=== PATIENT | male | born 1970 | race Caucasian/White ===

== ENCOUNTER 2016-02-19 14:09 | Outpatient (CLI) | payer OTHER | END 2016-02-19 14:10 | disposition home or self-care (01) | DX: G47.33 Obstructive sleep apnea (adult) (pediatric) (principal) ==

== ENCOUNTER 2016-04-09 13:15 | Outpatient (CLI) | payer OTHER | END 2016-04-09 13:16 | disposition home or self-care (01) | DX: G47.33 Obstructive sleep apnea (adult) (pediatric) (principal) ==

== ENCOUNTER 2016-05-09 13:41 | Outpatient (CLI) | payer OTHER | END 2016-05-09 13:42 | disposition home or self-care (01) | DX: G47.33 Obstructive sleep apnea (adult) (pediatric) (principal) ==

== ENCOUNTER 2017-11-13 11:53 | Outpatient (CLI) | payer OTHER ==
--- NOTE | 2017-11-13 21:34 | XRAY Report ---
Reason: THUMB PAIN, RIGHT Procedure Date: 11/13/2017 Accession Number: [id number] / [id number] Procedure: XR - Hand 2 View RT CPT Code: FULL RESULT: EXAM: RIGHT HAND RADIOGRAPHY EXAM DATE: 11/13/2017 12:12 PM. CLINICAL HISTORY: THUMB PAIN, RIGHT. COMPARISON: None. TECHNIQUE: 2 views. FINDINGS: Bones: No acute fractures or suspicious bone lesions. Joints: No subluxations. Soft Tissues: Unremarkable. IMPRESSION: No acute radiographic abnormalities. RADIA
== END 2017-11-13 11:54 | disposition home or self-care (01) ==
LOC: DI 11:53
PROVIDERS: ATTEND Family Medicine
DX: M79.644 Pain in right finger(s) (principal)

== ENCOUNTER 2018-02-18 10:31 | Emergency (ER) | payer OTHER ==
--- NOTE | 2018-02-18 11:24 | ED Physician Documentation ---
History of Present Illness - Stated complaint Stated Complaint: MEMORY LOSS/TIRED - Chief complaint Chief Complaint: Neuro - Additonal information Additional information: hx from pt 48 male pmhx HTN HLD and some sort of autoimmune dz, initially dx wagners, then dx possibly lupus, was on steroids for years but no oral steroids for 2 years now to ED with 2 months of progressive severe fatigue sleeping all the time falling asleep while driving and at work weight gain night sweats chronci cough is not new no abd pain NVD having headaches and last ngiht and again this AM had chest pain no new meds - last change was starting sertraline last July Review of Systems Constitutional: reports: Fatigue, Sweats. denies: Fever, Chills Cardiac: reports: Chest pain / pressure Respiratory: reports: Cough. denies: Dyspnea GI: denies: Abdominal Pain, Nausea, Vomiting, Diarrhea Skin: reports: Rash (to legs - not new - erelated to his autoimmune issues - uses steroid cream for it) Neurologic: reports: Generalized weakness, Headache. denies: Syncope Endocrine: reports: Weight gain Immunocompromised: denies: Immunocompromised PD PAST MEDICAL HISTORY - Past Medical History Past Medical History: Yes Cardiovascular: Hypertension, High cholesterol - Past Surgical History Past Surgical History: Yes General: Appendectomy - Present Medications Home Medications: Ambulatory Orders Medication Instructions Recorded Confirmed Cimetidine [Tagamet Hb] 400 mg PO DAILY 05/18/14 05/18/14 Ibuprofen [Motrin] 400 mg PO Q6H PRN #30 tablet 05/18/14 Imipramine [Tofranil] 25 mg PO DAILY 05/18/14 05/18/14 Metoprolol Tartrate [Lopressor] 25 mg PO DAILY 05/18/14 05/18/14 Pantoprazole [Protonix] 40 mg PO DAILY 05/18/14 05/18/14 Simvastatin [Zocor] 40 mg PO DAILY 05/18/14 05/18/14 oxyCODONE [Roxicodone] 5 - 10 mg PO Q4-6H PRN #25 tablet 05/18/14 predniSONE [Deltasone] 20 mg PO [id number] #21 tablet 02/18/18 - Allergies Allergies/Adverse Reactions: Allergies Allergy/AdvReac Type Severity Reaction Status Date / Time amoxicillin Allergy Unknown Verified 02/18/18 10:40 azithromycin [From Zithromax] Allergy Unknown Verified 02/18/18 10:40 Penicillins Allergy Unknown Verified 02/18/18 10:40 sertraline HCl * Allergy Unknown Verified 02/18/18 10:40 [From Zoloft] - Social History Does the pt smoke?: No Smoking Status: Never smoker Does the pt drink ETOH?: No Does the pt have substance abuse?: No - POLST Patient has POLST: No PD ED PE NORMAL - Vitals Vital signs reviewed: Yes - General General: Alert and oriented X 3 - HEENT HEENT: PERRL - Neck Neck: Supple, no meningeal sign - Cardiac Cardiac: RRR - Respiratory Respiratory: No respiratory distress, Clear bilaterally - Abdomen Abdomen: Soft, Non tender - Derm Derm: Normal color - Extremities Extremities: No deformity, No edema, No calf tenderness / cord - Neuro Neuro: Alert and oriented X 3, package clerk 2-12 intact, No motor deficit, Normal speech Eye Opening: Spontaneous Motor: Obeys Commands Verbal: Oriented GCS Score: 15 Results - Vitals Vitals: Vital Signs - 24 hr 02/18/18 10:36 Temperature 36.1 C L Heart Rate 76 Respiratory 15 Rate Blood Pressure 142/91 H O2 Saturation 98 Oxygen O2 Source Room air - EKG (time done) 1058 Rate: Rate (enter#) (71) Rhythm: NSR [place]: Normal Intervals: Normal [place] Ischemia: Normal ST segments, Q waves (inf) - Labs Labs: Laboratory Tests 02/18/18 02/18/18 02/18/18 10:50 11:15 11:15 WBC 8.7 RBC 4.83 Hgb 15.4 Hct 44.6 MCV 92.3 MCH 31.9 H MCHC 34.6 RDW 13.9 Plt Count 248 MPV 8.2 Neut # (Auto) 5.1 Lymph # (Auto) 2.6 [place] # (Auto) 0.8 Eos # (Auto) 0.2 Baso # (Auto) 0.1 Absolute Nucleated RBC 0.02 Nucleated RBC % 0.2 ESR Sodium 135 Potassium 4.0 Chloride 97 L Carbon Dioxide 28 Anion Gap 10.0 BUN 17 Creatinine 0.9 Estimated GFR (MDRD) 90 Glucose 127 H POC Whole Bld Glucose 116 H Lactic Acid Calcium 9.2 Total Bilirubin 0.7 AST 53 H ALT 80 H Alkaline Phosphatase 97 Troponin I Total Protein 7.5 Albumin 4.5 Globulin 3.0 Albumin/Globulin Ratio 1.5 Lipase 21 L TSH 02/18/18 02/18/18 02/18/18 11:15 11:15 11:15 WBC RBC Hgb Hct MCV MCH MCHC RDW Plt Count MPV Neut # (Auto) Lymph # (Auto) [place] # (Auto) Eos # (Auto) Baso # (Auto) Absolute Nucleated RBC Nucleated RBC % ESR Sodium Potassium Chloride Carbon Dioxide Anion Gap BUN Creatinine Estimated GFR (MDRD) Glucose POC Whole Bld Glucose Lactic Acid 2.0 Calcium Total Bilirubin AST ALT Alkaline Phosphatase Troponin I < 0.04 Total Protein Albumin Globulin Albumin/Globulin Ratio Lipase TSH 1.08 02/18/18 11:15 WBC RBC Hgb Hct MCV MCH MCHC RDW Plt Count MPV Neut # (Auto) Lymph # (Auto) [place] # (Auto) Eos # (Auto) Baso # (Auto) Absolute Nucleated RBC Nucleated RBC % ESR 1 Sodium Potassium Chloride Carbon Dioxide Anion Gap BUN Creatinine Estimated GFR (MDRD) Glucose POC Whole Bld Glucose Lactic Acid Calcium Total Bilirubin AST ALT Alkaline Phosphatase Troponin I Total Protein Albumin Globulin Albumin/Globulin Ratio Lipase TSH - Rads (name of study) CTH Radiology: See rad report (no acute) CXR Radiology: See rad report (no acute process) Departure - Departure Disposition: Home, Self Care Clinical Impression: Fatigue Qualifiers: Fatigue type: unspecified Qualified Code(s): R53.83 - Other fatigue Condition: Good Instructions: ED Systemic Lupus Erythematosis Prescriptions: predniSONE [Deltasone] 20 mg PO [id number] #21 tablet Comments: All of your labs came back fine The EKG and blood test for your heart showed no sign of a heart attack. You are not anemic You are not diabetic Your sed rate was 1 The thyroid function was fine The lactate to measure for infection was within normal limits. The only abnormality was two very slightly elevated liver tests which are very unlikely to be related to your symptoms. The CT scan was normal - no tumors or bleeding The xrays showed no infection or nodules. I am not certain what is going on but we have ruled out a lot of dangerous possibilities Certainly a flare up of lupus could cause symptoms like this. So I suggest trying a tapering course of steroids. And recommend you follow up with rheumatology for further care beyond what can be done in an ER visit Forms: Activity restrictions
[2018-02-18 11:25] LABS: BASOPHILS # (AUTO) 0.1 10^3/uL (0.0-0.1); BASOPHILS % (AUTO) 0.7 %; EOSINOPHILS # (AUTO) 0.2 10^3/uL (0.0-0.7); EOSINOPHILS % (AUTO) 2.7 %; HGB - HEMOGLOBIN 15.4 g/dL (14.0-18.0); LYMPHOCYTES # (AUTO) 2.6 10^3/uL (1.5-3.5); LYMPHOCYTES % (AUTO) 29.5 %; MEAN CORPUSCULAR HEMOGLOBIN 31.9 pg (27.0-31.0); MEAN CORPUSCULAR HGB CONC 34.6 g/dL (32.0-36.0); MEAN CORPUSCULAR VOLUME 92.3 fL (80.0-94.0); MEAN PLATELET VOLUME 8.2 fL (7.4-11.4); MONOCYTES # (AUTO) 0.8 10^3/uL (0.0-1.0); MONOCYTES % (AUTO) 8.9 %; NEUTROPHILS # (AUTO) 5.1 10^3/uL (1.5-6.6); NEUTROPHILS % (AUTO) 58.2 %; PLT - PLATELET COUNT 248 10^3/uL (130-450); RED BLOOD COUNT 4.83 10^6/uL (4.70-6.10); RED CELL DISTRIBUTION WIDTH 13.9 % (12.0-15.0); WHITE BLOOD COUNT 8.7 x10^3/uL (4.8-10.8)
[2018-02-18 11:38] LABS: ALBUMIN 4.5 g/dL (3.2-5.5); ALBUMIN/GLOBULIN RATIO 1.5 (1.0-2.2); BILIRUBIN,TOTAL 0.7 mg/dL (0.2-1.0); CALCIUM 9.2 mg/dL (8.5-10.3); CREATININE 0.9 mg/dL (0.6-1.2); TOTAL PROTEIN 7.5 g/dL (6.7-8.2)
--- NOTE | 2018-02-18 11:52 | XRAY Report ---
Reason: night sweats fatigue Procedure Date: 02/18/2018 Accession Number: [id number] / [id number] Procedure: XR - Chest 2 View X-Ray CPT Code: 24277 FULL RESULT: EXAM: CHEST RADIOGRAPHY EXAM DATE: 02/18/2018 11:40 AM. CLINICAL HISTORY: Night sweats fatigue. COMPARISON: XR CHEST PA AND LAT 05/29/2012 3:58 PM. TECHNIQUE: 2 views. FINDINGS: Lungs/Pleura: No focal opacities evident. No pleural effusion. No pneumothorax. Normal volumes. Mediastinum: The cardiomediastinal contour is suggestive of mild cardiomegaly. Other: None. IMPRESSION: No acute cardiopulmonary abnormality. RADIA
--- NOTE | 2018-02-18 12:08 | CT Report ---
Reason: confusion sleepiness headaches Procedure Date: 02/18/2018 Accession Number: [id number] / [id number] Procedure: CT - Head W/O CPT Code: FULL RESULT: EXAM: CT HEAD EXAM DATE: 02/18/2018 11:46 AM. CLINICAL HISTORY: Confusion sleepiness headaches. COMPARISON: None. TECHNIQUE: Multiaxial CT images were obtained from the foramen magnum to the vertex. Reformats: Sagittal and coronal. IV contrast: None. In accordance with CT protocol optimization, one or more of the following dose reduction techniques were utilized for this exam: automated exposure control, adjustment of mA and/or KV based on patient size, or use of iterative reconstructive technique. FINDINGS: Parenchyma: No intraparenchymal hemorrhage. No evidence of mass, midline shift. Lopez-white differentiation is distinct. Extraaxial Spaces: Normal for age. No subdural or epidural collections identified. Ventricles: Normal in size and position. Sinuses and Orbits: Imaged paranasal sinuses, orbits, and mastoids show no significant abnormality. Bones: No evidence of fracture or calvarial defect. Other: None. IMPRESSION: No acute intracranial abnormality. RADIA
[2018-02-18 13:28] LABS: BILIRUBIN,URINE NEGATIVE (NEGATIVE); GLUCOSE, URINE (UA) NEGATIVE (NEGATIVE); KETONES,URINE (UA) NEGATIVE (NEGATIVE); LEUKOCYTE ESTERASE, URINE NEGATIVE (NEGATIVE); NITRITE,URINE NEGATIVE (NEGATIVE); OCCULT BLOOD,URINE NEGATIVE (NEGATIVE); PROTEIN,URINE NEGATIVE (NEGATIVE); UROBILINOGEN,URINE 1 (NORMAL) E.U./dL (NORMAL)
[2018-02-18 13:57] LABS: CLARITY,URINE CLEAR (CLEAR)
[2018-02-18 14:09] VITALS: BP 140/86
== END 2018-02-18 14:24 | disposition home or self-care (01) ==
LOC: ED 10:31
DX: R53.83 Other fatigue (principal); I51.7 Cardiomegaly; I10 Essential (primary) hypertension; E78.5 Hyperlipidemia, unspecified; D89.89 Other specified disorders involving the immune mechanism, not elsewhere classified
CPT/HCPCS: 36415; 70450; 71046; 80053; 81001; 81003; 83605; 83690; 84443; 84484; 85025; 85651; 87040; 87086; 93005; 99283; 99284

== ENCOUNTER 2018-06-01 06:21 | Outpatient (CLI) | payer OTHER ==
[2018-06-01 07:00] LABS: ALBUMIN 4.4 g/dL (3.2-5.5); ALBUMIN/GLOBULIN RATIO 1.5 (1.0-2.2); ALKALINE PHOSPHATASE 82 IU/L (42-121); ALT ALANINE AMINOTRANSFERASE 78 IU/L (10-60); AST ASPARTATE AMINOTRANSFERASE 54 IU/L (10-42); BILIRUBIN,TOTAL 0.9 mg/dL (0.2-1.0); BUN - BLOOD UREA NITROGEN 13 mg/dL (6-20); CALCIUM 9.3 mg/dL (8.5-10.3); CARBON DIOXIDE - CO2 30 mmol/L (21-32); CHLORIDE 100 mmol/L (101-111); GFR - MDRD 80 (>89); GLUCOSE 121 mg/dL (70-100); SODIUM 139 mmol/L (135-145); TOTAL PROTEIN 7.4 g/dL (6.7-8.2)
[2018-06-01 07:04] LABS: CRP - C-REACTIVE PROTEIN < 1.0 mg/dL (0-1.0)
[2018-06-01 08:05] LABS: EOSINOPHILS % (AUTO) 2.5 %; HGB - HEMOGLOBIN 15.4 g/dL (14.0-18.0); LYMPHOCYTES % (AUTO) 36.5 %; MEAN CORPUSCULAR HEMOGLOBIN 31.5 pg (27.0-31.0); MEAN CORPUSCULAR HGB CONC 33.7 g/dL (32.0-36.0); MEAN CORPUSCULAR VOLUME 93.5 fL (80.0-94.0); MEAN PLATELET VOLUME 8.9 fL (7.4-11.4); MONOCYTES % (AUTO) 9.3 %; NEUTROPHILS % (AUTO) 51.1 %; PLT - PLATELET COUNT 278 10^3/uL (130-450); RED BLOOD COUNT 4.89 10^6/uL (4.70-6.10); RED CELL DISTRIBUTION WIDTH 13.7 % (12.0-15.0); WHITE BLOOD COUNT 10.3 x10^3/uL (4.8-10.8)
[2018-06-01 08:06] LABS: BASOPHILS # (AUTO) 0.1 10^3/uL (0.0-0.1); BASOPHILS % (AUTO) 0.6 %; EOSINOPHILS # (AUTO) 0.3 10^3/uL (0.0-0.7); LYMPHOCYTES # (AUTO) 3.8 10^3/uL (1.5-3.5); NEUTROPHILS # (AUTO) 5.3 10^3/uL (1.5-6.6)
== END 2018-06-01 06:22 | disposition home or self-care (01) ==
LOC: LAB 06:21
PROVIDERS: ATTEND Internal Medicine Rheumatology
DX: R53.83 Other fatigue (principal)
CPT/HCPCS: 36415; 80053; 82533; 85025; 85651; 86140

== ENCOUNTER 2018-06-12 15:38 | Outpatient (CLI) | payer OTHER ==
--- NOTE | 2018-06-15 09:06 | DEXA Report ---
Reason: STEROID USE,JAIL Procedure Date: 06/12/2018 Accession Number: [id number] / [id number] Procedure: DEX - Dexa Spine and/or Hip CPT Code: FULL RESULT: EXAM: Dexa Spine and/or Hip DATE: 06/12/2018 4:19 PM CLINICAL HISTORY: STEROID USE,JAIL TECHNIQUE: Dual energy x-ray absorptiometry (DXA) was performed on a DTI [employer] System. Regions measured are the AP Spine, femoral neck, and if needed forearm. COMPARISON: None. In accordance with the International Society for Clinical Densitometry (ISCD) guidelines, data from previous exams may be reanalyzed using current recommendations and techniques. This is done to allow a more accurate basis for comparison with the current study. FINDINGS: The data for the lumbar spine is as follows: BMD (g/cm/cm) T-SCORE Z-SCORE REGION L1 0.869 -2.4 -2.5 L2 1.155 -0.7 -0.8 L3 1.023 -1.8 -1.9 L4 1.040 -1.7 -1.8 TOTAL 1.025 -1.6 -1.8 NOTE: All evaluable vertebrae are used for classification The data for the hip is as follows: BMD (g/cm/cm) T-SCORE Z-SCORE REGION Neck 0.906 -1.3 -0.9 TOTAL 0.962 -1.0 -0.8 NOTE: The femoral neck or total proximal femur, whichever is lowest, is used for classification. IMPRESSION: THE WHO CLASSIFICATION BASED ON THE INTERNATIONAL REFERENCE STANDARD IS OSTEOPENIA. THE FRACTURE RISK IS INCREASED. RECOMMENDATION: Patients with diagnosis of osteoporosis or osteopenia should have regular bone mineral density assessment. For those eligible for Medicare, routine testing is allowed once every 2 years. Testing frequency can be increased for patients who have rapidly progressing disease or for those who are receiving medical therapy to restore bone mass. COMMENT: World Health Organization (WHO) definitions for osteoporosis and osteopenia: NORMAL BMD: T-score at -1.0 or higher, fracture risk is low OSTEOPENIA BMD: T-score between -1.0 and -2.5, fracture risk is increased. OSTEOPOROSIS BMD: T-score at -2.5 or lower, fracture risk is high. National Osteoporosis Foundation recommends: 1. Obtain adequate dietary calcium (at least 1200 mg per day) and vitamin D (400-800 international units per day). 2. Participate, as appropriate, in regular weightbearing and muscle-strengthening exercise. 3. Avoid tobacco use and reduce alcohol and caffeine intake. 4. For more detailed information see the website at www.NOF.org.
== END 2018-06-12 15:39 | disposition home or self-care (01) ==
LOC: DI 15:38
PROVIDERS: ATTEND Nurse Practitioner
DX: M85.89 Other specified disorders of bone density and structure, multiple sites (principal)
CPT/HCPCS: 77080

== ENCOUNTER 2018-08-17 13:12 | Outpatient (CLI) | payer OTHER ==
[2018-08-17 14:30] VITALS: BP 120/82
--- NOTE | 2018-08-17 14:30 | CONSULTATION NOTE ---
Information from patient questionnaire entered by Agnieszka Pollack. I have reviewed and concur with the information entered by Agnieszka Pollack. This document represents the service I personally performed and the decisions made by me, Anderson White MD, [facility]. - History of Present Illness HPI: BRONSON MOREL was diagnosed to have mild, AHI 8.8, obstructive sleep apnea- hypopnea syndrome and returned today for CPAP therapy annual follow-up. The patient purchased the device online because [employer] was going to charge him $6,000 for the equipment after his insurance paid $4,000. He uses the Respironics AmaraView full face mask. He continues to use the device nightly but not all night. The compliance report shows that he uses the device 172 nights out of the past 180 nights, averaging 7.5 hours a night. He complains of no particular problem with the device such as soreness on the face, dry nose, e pistaxis, nasal congestion or headache. He thinks that the pressure of 8 - 15 cmH2O is comfortable (raised from 4 12 cmH2O two years ago). On the CPAP therapy he still feels sleepy. His still can hear him snore through the CPAP. The average residual AHI is 6.6 (was 5.1); and large leak, 5.8 L/min. The 90th percentile pressure is 13 cmH2O. He recently started taking Nuvigil 150 mg but it did not help. Equipment obtained from: The CPAP shop Mask style: Full face Mask brand: Respironics - Compliance Data Reviewed with Patient Average duration of nightly device use: 7 hours 22 minutes Compliance rate % (4+hrs/night over past 30 nights): 93 Current pressure setting (cmH2O): 8-15 Average residual AHI: 6.6 - Subjective Missed days of use due to: travel Observed to snore while using device: Yes Current pressure setting perceived as: comfortable On therapy, patient reports: drowsiness while driving Initial [place] Sleepiness Scale score: 7 Current [place] Sleepiness Scale score: 22 - Review of Systems Review of systems same as previous: Yes - Allergies/Medications Allergies and home medications reviewed: Yes - Physical Examination Blood Pressure: 120/82 Cuff size: regular Heart Rate: 74 O2 Saturation: 98 Height: 5 ft 10 in Weight (kg): 85.457 kg Body Mass Index: 27.0 BMI Classification: Overweight - Impression 1. Obstructive Sleep Apnea-Hypopnea Syndrome, mild, with the patient continuing to do fairly well on the CPAP therapy. He has good compliance and significant clinical benefits. The current pressure appears comfortable but not effective. This might explain why he still feels sleepy despite getting enough sleep. Overall, he is very satisfied with treatment and plans to continue with it long- term. - Plan Plan: 1. AutoCPAP raised to 10 - 16 cm H2O on the memory card. 2. Prescription made for CPAP supplies so that he get supplies from a durable medical supplier that is in his insurances network. 3. Return in two months to recheck residual AHI value. I spent 100% of this 20 minute visit face to face with the patient with greater than 50% of this was spent time counseling the patient and coordination of care.
== END 2018-08-17 13:13 | disposition home or self-care (01) ==
LOC: SC 13:12
PROVIDERS: ATTEND Internal Medicine Pulmonary Disease
DX: G47.33 Obstructive sleep apnea (adult) (pediatric) (principal)
CPT/HCPCS: 99212; 99213

== ENCOUNTER 2018-10-10 12:48 | Outpatient (CLI) | payer OTHER ==
[~2018-10-10 12:48] MED LIST: GADOBUTROL 10 MMOL/10 ML VIAL ONE
[2018-10-10] MEDS ORDERED: GADOBUTROL 10 MMOL/10 ML VIAL IVP ONE (13:42)
--- NOTE | 2018-10-11 04:56 | MRI Report ---
Reason: MEMORY LOSS Procedure Date: 10/10/2018 Accession Number: [id number] / [id number] Procedure: MRI - Brain W/WO CPT Code: FULL RESULT: EXAM: MRI BRAIN WITHOUT AND WITH CONTRAST EXAM DATE: 10/10/2018 01:53 PM. CLINICAL HISTORY: Memory loss. COMPARISON: HEAD W/O 02/18/2018 11:31 AM. TECHNIQUE: Multiplanar, multisequence T1-weighted and fluid-sensitive MR sequences of the brain were performed. Sequences optimized for routine evaluation. Other: None. IV Contrast: 10 mL of Gadavist. FINDINGS: Brain Volume: Normal for age. Parenchyma: No acute hemorrhage, mass, or infarct. No white matter lesions identified. No abnormal enhancement. There is no evidence of a Chiari type I malformation. On coronal images, the hippocampi appear symmetric in size and normal for the patient's age. Ventricles/Cisterns: No hydrocephalus. No abnormal extra-axial fluid collection or hemorrhage. Orbits: Symmetric and unremarkable. Sella Turcica: The pituitary gland, cavernous sinuses, suprasellar cistern and optic chiasm are unremarkable. IAC: Symmetric and unremarkable. Vasculature: Normal signal flow void is seen in the major arterial structures at the skull base. The dural sinuses are patent and enhance normally. Sinuses: No acute sinus disease. Bones: No focal pathologic appearing marrow signal changes. IMPRESSION: Normal contrast-enhanced brain MRI. RADIA
== END 2018-10-10 12:49 | disposition home or self-care (01) ==
LOC: DI 12:48
PROVIDERS: ATTEND Physician Assistant Medical
DX: R41.3 Other amnesia (principal)
CPT/HCPCS: 70553; A9585

== ENCOUNTER 2018-10-19 15:15 | Outpatient (CLI) | payer OTHER ==
--- NOTE | 2018-10-19 16:32 | SLEEP CARE CONSULTATION ---
Information from patient questionnaire entered by Isadora Agrawal. I have reviewed and concur with the information entered by Isadora Agrawal. This document represents the service I personally performed and the decisions made by me, Anderson White MD, [facility]. History of Present Illness Previous diagnosis: Mild, Obstructive Sleep Apnea-Hypopnea Syndrome AHI: 8.6 Reason for CPAP/BiPAP follow up: other (2 MONTH FOLLOW UP WITH PRESSURE CHANGE) Equipment type: CPAP Equipment obtained from: [employer] Mask brand: Resmed Prior sleep studies: Yes Year and Where: [facility] additional information: HPI: Mr. Tinsley returned today for follow up of nasal CPAP therapy. He was diagnosed to have mild obstructive sleep apnea-hypopnea syndrome. The patient wears a Respironics AmaraView full face mask. He reports using the device nightly and all through the night. The compliance report shows usage in 58 nights out of the past 60 nights, averaging 7.7 hours a night. He complained of no particular problem with the device such as soreness on the face, dry nose, epistaxis, nasal congestion or headache. He thinks that the pressure of 12 - 16 is comfortable (raised two months ago for elevated residual AHI of 6.6). On the CPAP therapy he notices improvement in his sleep quality but still feels sleepy during the day. He tried Nuvigil for a short while and stopped because it quit working. The average residual AHI is 5.4; and air leak, 7 L/min. The 90th percentile pressure is 13.8 cmH2O. CPAP Compliance Data - Data Reviewed with Patient Average duration of nightly device use: 7H 42M Compliance rate %: 97 Current pressure setting (cmH2O): 12-16 Allergies and Home Medications Drug allergies reviewed: Yes Home medication list reviewed: Yes Review of Systems Review of systems same as previous: Yes Impression and Plan IMPRESSION: 1. Obstructive Sleep Apnea-Hypopnea Syndrome, mild, with the patient doing well on nasal CPAP therapy. He has good compliance and significant clinical improvement. The current pressure appears still slightly ineffective but comfortable. The residual events are mostly central apneas. Overall, he is very satisfied with treatment and plans to continue with it long-term. I will raise the pressure a little further. If still ineffective, a manual CPAP/BiPAP titration study will be ordered. PLAN: 1. AutoCPAP raised to 13 - 18 cmH2O. 2. Try ResMed AirTouch F-20 full face mask. 4. Return for follow up in two months to recheck the residual AHI. I spent 100% of this 15 minute visit face to face with the patient with greater than 50% of this was spent time counseling the patient and coordination of care.
== END 2018-10-19 15:16 | disposition home or self-care (01) ==
LOC: SC 15:15
PROVIDERS: ATTEND Internal Medicine Pulmonary Disease
DX: G47.33 Obstructive sleep apnea (adult) (pediatric) (principal)
CPT/HCPCS: 99212; 99213

== ENCOUNTER 2019-03-08 11:13 | Outpatient (CLI) | payer OTHER ==
--- NOTE | 2019-03-08 12:10 | SLEEP CARE CONSULTATION ---
Information from patient questionnaire entered by Isadora Agrawal. I have reviewed and concur with the information entered by Isadora Agrawal. This document represents the service I personally performed and the decisions made by me, Anderson White MD, [facility]. History of Present Illness Previous diagnosis: Mild, Obstructive Sleep Apnea-Hypopnea Syndrome AHI: 8.6 Reason for follow up: other (2 MONTH) Equipment type: CPAP Equipment obtained from: [employer] Prior sleep studies: Yes HPI additional information: HPI: Mr. Tinsley returned today for follow up of nasal CPAP therapy. He was diagnosed to have mild obstructive sleep apnea-hypopnea syndrome. The patient wears a ResMed AirTouch F-20 full face mask (switched from Respironics AmaraView full face mask). [employer] is his durable medical supplier. He reports using the device nightly and all through the night. The compliance report shows usage in 58 nights out of the past 60 nights, averaging 8.2 hours a night. The > 4 hour compliance rate for the past 60 days is 97%. He complained of no particular problem with the device such as soreness on the face, dry nose, epistaxis, nasal congestion or headache. He thinks that the pressure of 13 - 18 is comfortable (raised three months ago for elevated residual AHI of 5.4). On the CPAP therapy he notices improvement. He was still sleepy for a while but not anymore. The average residual AHI is 2.0; and air leak, 7.9 L/min. The 90th percentile pressure is 15.1 cmH2O. CPAP Compliance Data - Data Reviewed with Patient Average duration of nightly device use: 8H 13M Compliance rate %: 97 Current pressure setting (cmH2O): 13-18 Subjective Current pressure setting perceived as: comfortable Initial [place] Sleepiness Scale score: 7 Current [place] Sleepiness Scale score: 1 Allergies and Home Medications Drug allergies reviewed: Yes Home medication list reviewed: Yes Allergy and home medication list: Current Medications: Effexor, hydroxyzine, simvastatin, pantoprazole, metoprolol, hydrocodone, clobetasol, vitamin D3, prednisone Allergies: penicillin, sulfa, Zithromax, and Zoloft Review of Systems Review of systems same as previous: Yes Physical Exam Height: 5 ft 9 in Weight: 195 lb Weight change since last visit: +7 Body Mass Index: 28.8 BMI Classification: Overweight Impression and Plan IMPRESSION: 1. Obstructive Sleep Apnea-Hypopnea Syndrome, mild, with the patient doing well on nasal CPAP therapy. He has good compliance and significant clinical improvement. The current pressure appears effective and comfortable. Overall, he is very satisfied with treatment and plans to continue with it long-term. No adjustment is necessary today. PLAN: 1. Leave autoCPAP at 13 - 18 cmH2O. 2. Try Respironics DreamWear full face mask 3. Return for follow up in a year or earlier if there is any problem. I spent 100% of this visit face to face with the patient with greater than 50% of this was spent time counseling the patient and coordination of care.
== END 2019-03-08 11:14 | disposition home or self-care (01) ==
LOC: SC 11:13
PROVIDERS: ATTEND Internal Medicine Pulmonary Disease
DX: G47.33 Obstructive sleep apnea (adult) (pediatric) (principal)
CPT/HCPCS: 99212; 99213

== ENCOUNTER 2019-03-29 11:07 | Outpatient (CLI) | payer OTHER ==
[2019-03-29 18:49] LABS: CHOL/HDL RATIO 3.7 (<5.0); CHOLESTEROL 143 mg/dL; HDL CHOLESTEROL 39 mg/dL; LDL CHOLESTEROL,CALCULATED 46 mg/dL; LDL/HDL RATIO 1.2 (<3.6); VLDL CHOLESTEROL 58 mg/dL
[2019-03-29 19:10] LABS: HB2 TOTAL 16.2 g/dL; HEMOGLOBIN A1C 0.79 g/dL; HEMOGLOBIN A1C % 6.6 % (4.6-6.2)
[2019-03-30 12:15] LABS: HEPATITIS B SURFACE ANTIGEN NON-REACTIVE (NON-REACTIVE)
[2019-03-30 12:16] LABS: HEPATITIS C ANTIBODY NON-REACTIVE (NON-REACTIVE)
== END 2019-03-29 23:59 | disposition home or self-care (01) ==
LOC: LAB.WCP 11:07
PROVIDERS: ATTEND Physician Assistant Medical
DX: E78.2 Mixed hyperlipidemia (principal); R73.9 Hyperglycemia, unspecified; R74.8 Abnormal levels of other serum enzymes
CPT/HCPCS: 36415; 80061; 83036; 83721; 86317; 86704; 86709; 86803; 87340

== ENCOUNTER 2019-04-28 08:27 | Outpatient (CLI) | payer OTHER ==
--- NOTE | 2019-04-29 13:26 | Ultrasound Report ---
Reason: ELEVATED LIVER ENZYMES Procedure Date: 04/28/2019 Accession Number: [id number] / [id number] Procedure: US - Abdomen Limited CPT Code: Final Report FULL RESULT: EXAM: ABDOMEN ULTRASOUND LIMITED, RUQ EXAM DATE: 04/28/2019 09:24 AM. CLINICAL HISTORY: Elevated liver enzymes. COMPARISON: ABDOMEN/PELVIS W/O 11/07/2015 11:47 AM. TECHNIQUE: Real-time scanning was performed with static images obtained. FINDINGS: Liver: 17.9 cm in length. Diffusely echogenic consistent with fatty infiltration. No intrahepatic biliary ductal dilatation. No suspicious hepatic masses. Hepatopetal flow of the portal vein. Gallbladder: Normal. No stones, wall thickening, or sonographic Vang's sign. Biliary System: CBD measures 4 mm. No intrahepatic or extrahepatic ductal dilatation. Other: Right kidney 11.7 cm in length, without hydronephrosis, or evident nephrolithiasis. IMPRESSION: Mild hepatomegaly with diffuse fatty infiltration. No cholelithiasis. RADIA
== END 2019-04-28 08:28 | disposition home or self-care (01) ==
LOC: DI 08:27
PROVIDERS: ATTEND Physician Assistant Medical
DX: K76.0 Fatty (change of) liver, not elsewhere classified (principal)
CPT/HCPCS: 76705

== ENCOUNTER 2019-05-27 14:15 | Outpatient (CLI) | payer OTHER ==
--- NOTE | 2019-05-27 16:32 | XRAY Report ---
Reason: RIGHT FOOT PAIN Procedure Date: 05/27/2019 Accession Number: [id number] / [id number] Procedure: WCP - Foot 3 View RT CPT Code: Final Report FULL RESULT: EXAM: RIGHT FOOT RADIOGRAPHY EXAM DATE: 05/27/2019 02:15 PM. CLINICAL HISTORY: Right foot pain. COMPARISON: None. TECHNIQUE: 3 views. FINDINGS: Bones: No acute fracture identified. Joints: No subluxation or dislocation. Soft Tissues: No subcutaneous radiopaque foreign bodies. IMPRESSION: No acute fracture detected. RADIA
== END 2019-05-27 23:59 | disposition home or self-care (01) ==
LOC: DI.WCP 14:15
PROVIDERS: ATTEND Family Medicine
DX: M79.671 Pain in right foot (principal)

== ENCOUNTER 2023-08-04 08:09 | Outpatient (CLI) | payer OTHER ==
[2023-08-04 08:36] LABS: ALBUMIN 4.5 g/dL (3.2-5.5); ALBUMIN/GLOBULIN RATIO 1.7 (1.0-2.2); ALKALINE PHOSPHATASE 85 IU/L (42-121); ALT ALANINE AMINOTRANSFERASE 20 IU/L (10-60); AST ASPARTATE AMINOTRANSFERASE 18 IU/L (10-42); BILIRUBIN,TOTAL 0.8 mg/dL (0.2-1.0); BUN - BLOOD UREA NITROGEN 15 mg/dL (6-20); CALCIUM 9.5 mg/dL (8.5-10.3); CARBON DIOXIDE - CO2 32 mmol/L (21-32); CHLORIDE 98 mmol/L (101-111); CHOL/HDL RATIO 3.7 (<5.0); CHOLESTEROL 131 mg/dL; CREATININE 0.9 mg/dL (0.6-1.3); GFR - MDRD 88 (>89); GLUCOSE 172 mg/dL (74-104); HDL CHOLESTEROL 35 mg/dL; LDL CHOLESTEROL,CALCULATED 48 mg/dL; LDL/HDL RATIO 1.4 (<3.6); SODIUM 134 mmol/L (135-145); TOTAL PROTEIN 7.1 g/dL (6.4-8.9); TRIGLYCERIDES 241 mg/dL (48-352); VLDL CHOLESTEROL 48 mg/dL
[2023-08-04 10:06] LABS: ESTIMATED AVERAGE GLUCOSE 171 mg/dL (70-100); HEMOGLOBIN A1c% 7.6 % (4.27-6.07)
== END 2023-08-04 08:10 | disposition home or self-care (01) ==
LOC: LAB 08:09
PROVIDERS: ATTEND Physician Assistant Medical
DX: E11.9 Type 2 diabetes mellitus without complications (principal)
CPT/HCPCS: 36415; 80053; 80061; 83036; 83721

== ENCOUNTER 2023-10-30 08:35 | Outpatient (CLI) | payer OTHER ==
[2023-10-30 09:02] LABS: CALCIUM 9.6 mg/dL (8.5-10.3); CREATININE 0.9 mg/dL (0.6-1.3); POTASSIUM 4.2 mmol/L (3.5-4.5)
[2023-10-30 10:03] LABS: ESTIMATED AVERAGE GLUCOSE 157 mg/dL (70-100); HEMOGLOBIN A1c% 7.1 % (4.27-6.07)
== END 2023-10-30 08:36 | disposition home or self-care (01) ==
LOC: LAB 08:35
PROVIDERS: ATTEND Physician Assistant Medical
DX: E11.9 Type 2 diabetes mellitus without complications (principal); Z12.5 Encounter for screening for malignant neoplasm of prostate
CPT/HCPCS: 36415; 80048; 83036; 84153